=== PATIENT | male | born 1995 | race Caucasian/White ===

== ENCOUNTER 2023-07-26 09:11 | Outpatient (REF) | payer MEDICARE, MEDICAID, SELFPAY | END 2023-07-26 09:12 | disposition home or self-care (01) | LOC: HO.HHCL 09:11 | PROVIDERS: Visit Provider Internal Medicine Geriatric Medicine | DX: Z00.00 Encounter for general adult medical examination without abnormal findings (principal); Z13.1 Encounter for screening for diabetes mellitus; Z13.220 Encounter for screening for lipoid disorders | CPT/HCPCS: 36415; 80048; 80061 ==

== ENCOUNTER 2023-11-17 08:53 | Outpatient (REF) | payer MEDICARE, MEDICAID, SELFPAY ==
[2023-11-20 09:29] LABS: TS Negative Control Passed; TS Panel A 0; TS Panel B 0; TS Positive Control Passed; TSpotTB Negative (Negative)
== END 2023-11-17 08:54 | disposition home or self-care (01) ==
LOC: HO.HHCL 08:53
PROVIDERS: Visit Provider Internal Medicine Geriatric Medicine
DX: Z11.1 Encounter for screening for respiratory tuberculosis (principal)
CPT/HCPCS: 36415; 86481

== ENCOUNTER 2024-07-09 14:53 | Outpatient (REF) | payer MEDICARE, MEDICAID, SELFPAY ==
[2024-07-09 17:30] LABS: Anion Gap 11 (12-20); Blood Urea Nitrogen 16 mg/dL (9-16); Calcium 9.6 mg/dL (8.4-10.2); Carbon Dioxide 25 mmol/L (22-29); Chloride 106 mmol/L (96-108); Cholesterol 196 mg/dL (<200); Estimated Glomerular Filt Rate > 60; Glucose Random 87 mg/dL (60-115); HDL Cholesterol 31 mg/dL (>40); LDL Cholesterol Calculated 124 mg/dL (<100); Potassium 4.2 mmol/L (3.3-5.1); Sodium 138 mmol/L (135-145); Triglycerides 206 mg/dL (<150)
[2024-07-10 08:11] LABS: HIV AB/AG Nonreactive (Nonreactive); HIV Num 1 0.05 S/CO (0.00-0.99); ~HepC Num1 0.16 S/CO (0.00-0.79); ~Hepatitis C Antibody Nonreactive (Nonreactive)
== END 2024-07-09 14:54 | disposition home or self-care (01) ==
LOC: HO.HHCL 14:53
PROVIDERS: Visit Provider Internal Medicine Geriatric Medicine
DX: Z11.59 Encounter for screening for other viral diseases (principal); F06.8 Other specified mental disorders due to known physiological condition; Z11.4 Encounter for screening for human immunodeficiency virus [HIV]; F31.9 Bipolar disorder, unspecified; Z28.21 Immunization not carried out because of patient refusal; E66.9 Obesity, unspecified
CPT/HCPCS: 36415; 80048; 80061; 86803; 87389

== ENCOUNTER → 2025-05-31 09:27 | Outpatient (REF) | payer MEDICARE, MEDICAID, SELFPAY ==
--- OUTSIDE RECORDS SUMMARY | 2024-04-09 06:30 | XMS_ITS ---
Author Organization [facility] Address [address], [place] [id number] Care Team Providers Care Inspector Assembly Name Role Phone NO, PCP Primary Care Provider Gwendolyn Keane Unavailable [phone] Radha Gann Unavailable [phone] Encounters Encounter Location Date Provider Diagnosis [facility] [address] [place] [phone] 04/09/2024 Radha Gann Plan Of Treatment No Information Progress Notes * Js LYNCHsDOB:1995 (30 yo M)Acc No.[id number]:04/09/2024 Case Management Patient: Luis Manuel PIERRE Provider: Yanira Gann :1995 A ge:28 Y S ex:Male Date:04/09/2024 Address:[address] [place] [address] Kaden YUAN [id number] Pcp:PCP NO Subjective: * Chief Complaints: * * Medical History: Objective: Assessment: Plan: * Treatment: * Images: Billing Information: * Visit Code: * Procedure Codes: Care Plan Details* * Electronic signature of Julio Gann on 05/31/2025 at 09:42 AM EDT Sign off status: Pending * Provider: Yanira Gann Date: 04/09/2024 Generated for Estiven luque/Clement/eTgerson on: 05/31/2025 09:42 AM EDT
--- NOTE | 2025-05-31 09:36 | ECG_ITS ---
Test Reason : schizophrenia Blood Pressure : */* mmHG Vent. Rate : 57 BPM Atrial Rate : 57 BPM P-R Int : 134 ms QRS Dur : 86 ms QT Int : 428 ms P-R-T Axes : -7 17 21 degrees QTcB Int : 416 ms Sinus bradycardia with sinus arrhythmia Otherwise normal ECG No previous ECGs available Referred By: Rishi Fournier Electronically Signed By: Vito Burnette
--- OUTSIDE RECORDS SUMMARY | 2025-05-31 09:42 | XMS_ITS | Clinical Summary ---
Author Organization [employer] Address [address] [place] [address] Care Team Providers Care Global Sales Executive Name Role Phone Name, Abdiaziz TANNER Primary Care Provider [phone] Allergies No known active allergies Medications * This document contains information received from the source organization and may not represent a complete record from that organization. benztropine (Cogentin) 1 MG tablet 3 Active perphenazine 4 MG tablet 3 Active sertraline (Zoloft) 100 MG tablet 3 Active melatonin 3 MG tablet Take 1 tablet (3 mg) by mouth at bedtime. 90 tablet 3 3 Active risperiDONE ER (Uzedy) 125 MG/0.35ML suspension prefilled syringeIndicati ons:Bipolar 1 disorder (CMS/HCC) Inject 125 mg under the skin every 28 (twenty-eight) days. 0.35 mL 3 5 Active divalproex (Depakote) 500 MG EC tabletIndicatio ns:Bipolar 1 disorder (CMS/HCC) Take 4 tabs (2,000 mg) by mouth daily 120 tablet 3 5 Active chlorproMAZINE (Thorazine) 100 MG tablet Take 1 tablet (100 mg) by mouth Once per day. As needed Agitation 30 tablet 3 5 Active hydrOXYzine pamoate (Vistaril) 50 MG capsule Take 1 capsule (50 mg) by mouth if needed in the morning and at bedtime for anxiety. 30 capsule 3 5 Active risperiDONE (RisperDAL) 3 MG tablet Take 1 tablet (3 mg) by mouth 2 times daily. 60 tablet 3 5 Active traZODone (Desyrel) 100 MG tabletIndicatio ns:Bipolar 1 disorder (CMS/HCC) Take 0.5 tablets (50 mg) by mouth at bedtime. 30 tablet 3 5 Active cyanocobalamin (Vitamin B-12) 1000 MCG tablet Take 1 tablet (1,000 mcg) by mouth Once per day. 30 tablet 3 5 Active triamcinolone (Kenalog) 0.1 % creamIndication s:Rash Apply topically if needed in the morning and at bedtime (pain and swelling). 30 g 5 Active haloperidol (Haldol) 5 MG tabletIndicatio ns:Bipolar 1 disorder (CMS/HCC) TAKE 2 TABLETS BY MOUTH EVERY DAY 60 tablet 3 5 Active Active Problems Problem Noted Date Diagnosed Date Alcohol use disorder 04/29/2025 Right arm cellulitis 04/02/2025 Assessment & Plan (04/02/2025 9:46 AM EDT): I will prescribe doxycycline 100 mg twice a day Advised patient to monitor the area if erythema extends or if tenderness gets worse or if there is suppuration to come back to be seen Rash 04/02/2025 Class 2 obesity 12/31/2024 Schizoaffective disorder, bipolar type Healthcare maintenance 12/07/2024 Open fracture of tooth 12/07/2024 Cannabis use disorder 12/04/2024 PELON (generalized anxiety disorder) 01/03/2024 Dental calculus 09/13/2023 Dental caries 09/13/2023 Dental abscess 09/13/2023 Gingival bleeding 09/13/2023 Missing teeth, acquired 09/13/2023 Financial insecurity 06/11/2023 Assessment & Plan (06/11/2023 2:10 PM EDT): Has lead case manager appointment this week to help enroll in services Resolved Problems Problem Noted Date Diagnosed Date Resolved Date Bipolar 1 disorder 06/11/2023 Assessment & Plan (12/07/2024 10:23 AM EST): Pt appears well today, no SI/HI at this time Pt plans to f/u with OP psychiatry and therapist Pt plans to continue on current meds- fills sent today EKG was normal, no QT prolongation Pt plans to f/u for nurse visit on 12/18/24 for next risperidone injection Pt plans to f/u with PCP on 12/31/24 Assessment & Plan (06/11/2023 2:10 PM EDT): Per pt report, no psychiatric notes available Discussed with dad that speaking with new psychiatrist about medication concerns is the best idea Anger 06/11/2023 03/25/2025 Assessment & Plan (06/11/2023 2:11 PM EDT): Per patient, this is why he has been placed on sedating medications Encounters * This document contains information received from the source organization and may not represent a complete record from that organization. Date Type Department Care Team Description 05/20/2025 Patient Outreach [facility] [address], [place] [phone] Lilly Lopez [facility] 05/17/[address] [address] Michael Callahan [place] june recalls 05/13/2025 Patient Outreach [facility] [address] [place] [address] Lilly [facility] 04/21/2025 Refill [facility] [address] [place] [address] Vidhi Alves CNP Bipolar 1 disorder ([facility]) 04/02/2025 9:40 AM EDT Office Visit [facility] [address] [place] [address] Bailey Mays MD Right arm cellulitis (Primary Dx); Rash 03/22/2025 Patient Outreach [facility] [address] [place] [address] Luis Manuel Marti [facility] 03/08/2025 Telephone [facility] [address] [place] [address] Name, MD Abdiaziz Prior Auth Prescription 03/01/2025 Refill [facility] [address] [place] [address] Name, MD Abdiaziz from Last 3 Months Immunizations Immunization Administration Dates Next Due Influenza injectable quadrivalent preservative f ree 07/12/2023 Influenza, IIV3, injectable 07/12/2023 Tdap 07/12/2023 Social History Tobacco Use Types Packs/Day Years Used Date Smoking Tobacco: Every Day Cigarettes Smokeless Tobacco: Never Tobacco Cessation:Ready to Q uit: Not Asked; Counseling Given: Not Answered Alcohol Use Standard Drinks/Week Comments Yes 0 (1 standard drink = 0.6 oz pur e alcohol) Alcohol Answer Date Recorded How often do you have a drink containing alcohol ? 1 03/22/2025 How many drinks containing a lcohol do you have on a typical day when you are drinking? 2 03/22/2025 How often do you have six or more drinks on one occasion? 0 03/22/2025 Depression Answer Date Recorded Patient Health Questionnaire-9 Score 8 02/05/2025 Patient Health Questionnaire-9 Score 8 02/05/2025 Last PHQ-9: Questionnaire Data Not on file 0 02/05/2025 Housing Stability Answer Date Recorded What is your housing situation today? I have broderick velazco 08/09/[address] you li ve. Do you have problems with any of the following? None of the above 08/09/2023 Food Insecurity Answer Date Recorded Within the past 12 months, y ou worried that your food would run out before you got money to buy more: Never True 08/09/2023 Within the past 12 months,th e food you bought just didn't last and you didn't have enough money to get more: Never True Transportation Answer Date Recorded In the past 12 months, has l ack of transportation kept you from medical appts, meetings, work or from getting things needed for daily living? No 08/09/2023 Utilities Answer Date Recorded In the past 12 months, has t he electric, gas, oil or water company threatened to shut off services in your home? No 08/09/2023 Depression Answer Date Recorded Patient Health Questionnaire-2 Score 0 02/05/2025 Internet Access Answer Date Recorded Internet Access Q1 Yes 07/02/2024 Internet Access Q2 Not on file 07/02/2024 Sex and Gender Information Value Date Recorded Sex Assigned at Male 08/16/2022 10:31 AM EDT Legal Sex Male 10:31 AM EDT Gender Identity Choose not to disclose 10:31 AM EDT Sexual Orientation Choose not to disclose 2021 10:31 AM EDT Last Filed Vital Signs Vital Sign Reading Time Taken Comments Blood Pressure 128/86 04/02/2025 9:24 AM EDT Pulse 79 04/02/2025 9:24 AM EDT Temperature 36.6 C (97.8 F) 04/02/2025 9:24 AM EDT Respiratory Rate 17 04/02/2025 9:24 AM EDT Oxygen Saturation 98% 04/02/2025 9:24 AM EDT Inhaled Oxygen Concentration - - Weight 105 kg (231 lb 3.2 oz) 04/02/2025 9:24 AM EDT Height 177.8 cm (5' 10 ) 12/31/2024 9:43 AM EDT Body Mass Index 33.17 12/31/2024 9:43 AM EDT Plan of Treatment Upcoming Encounters Date Type Department Care Team (Late st Contact Info) Description 07/30/2025 9:30 AM EDT Office Visit [facility] [address] [place] [phone] Name, MD Abdiaziz [address] [place] [address] Health Maintenance Due Date Last Done Comments Disability Screening 1995 Family Planning (PISQ) 2012 HPV Vaccines (1 - 3-dose series) 2012 Hepatitis B Vaccines (1 of 3 - 19+ 3-dose series) 2016 Pneumococcal Vaccine: Pediatrics (0 to 5 Years) and At-Risk Patients (6 to 49) Years (1 of 2 - PCV) 2016 Dental Oral Exam 03/14/2024 09/13/2023 Dental Prophylaxis 03/14/2024 09/13/2023 COVID-19 Vaccine (1 - 2023-2 5 season) 2024 Dental X-Ray: Bitewings 09/14/2024 09/13/2023 Influenza Vaccine (#1) 2025 3, 07/12/2023 SDOH Screening 07/02/2025 07/02/2024 Tobacco Screening 12/31/2025 12/31/2024 Depression Screening 02/05/2026 02/05/2025, 02/05/2025 Alcohol/Substance Use Screening 03/22/2026 03/22/2025 Dental X-Ray: Full Mouth 09/14/2026 09/13/2023 Lipid Panel 07/09/2029 07/09/2024, 07/26/2023 DTaP/Tdap/Td Vaccines (2 - T d or Tdap) 07/12/2033 07/12/2023 Zoster Vaccines (1 of 2) 2047 RSV Patients and Patients Aged 60 years or older (1 - 1-dose 75+ series) 2072 HIV Screening Completed 07/09/2024 Hepatitis C Screening Completed 07/09/2024 HIB Vaccines Aged Out No longer eligi ble based on patient's age to complete this topic Hepatitis A Vaccines Aged Out No long er eligible based on patient's age to complete this topic IPV Vaccines Aged Out No longer eligi ble based on patient's age to complete this topic Meningococcal B Vaccine Aged Out No l onger eligible based on patient's age to complete this topic Meningococcal Vaccine Aged Out No nancy anette eligible based on patient's age to complete this topic RSV under 20 months Aged Out No longe r eligible based on patient's age to complete this topic Rotavirus Vaccines Aged Out No longer eligible based on patient's age to complete this topic Procedures Procedure Name Priority Date/Time Associated Diagnosis Comments HEPATITIS C AB W/REFL TO HCV RNA, QN, PCR Routine 07/09/2024 3:00 PM EDT Vaccination refused by patient Bipolar 1 disorder (CMS/HCC) Obesity (BMI 35.0-39.9 without comorbidity) Need for hepatitis C screening test HIV 1/2 ANTIGEN/ANTIBODY, FOURTH GENERATION W/RFL Routine 07/09/2024 3:00 PM EDT Vaccination refused by patient Bipolar 1 disorder (CMS/HCC) Obesity (BMI 35.0-39.9 without comorbidity) Need for hepatitis C screening test Other specified mental disorders due to known physiological condition LIPID PANEL, STANDARD Routine 07/09/2024 1:00 PM EDT Vaccination refused by patient Bipolar 1 disorder (CMS/HCC) Obesity (BMI 35.0-39.9 without comorbidity) Need for hepatitis C screening test PROPHYLAXIS - ADULT Routine 09/13/2023 9 :00 AM EST Dental calculus Gingival bleeding INTRAORAL - COMPLETE SERIES OF RADIOGRAPHIC IMAGES Routine 09/13/2023 9:00 AM EST Dental calculus Dental caries Dental abscess Gingival bleeding COMPREHENSIVE ORAL EVALUATION - NEW OR ESTABLISHED PATIENT Routine 09/13/2023 9:00 AM EST from Last 3 Months or Most Recently Relevant to Health Maintenance Results * Hepatitis C Antibody with Reflex to HCV, RNA, Quantitative, Real-Time PCR (07/09/2024 3:00 PM EDT) Pathologist [facility] Hepatitis C Antibody Nonreactive Nonreactive [facility] Comment:Antibodies to HCV no t detected; does not exclude early acuteHCV infection. Blood Venous blood specimen / Unknown 07/09/2024 3:00 PM EDT 07/09/2024 4:53 PM EDT us Abdiaziz Name LAB BLOOD ORDERABLES Final Resul t [facility] [address] [place] [phone] * HIV-1/2 Antigen and Antibodies, Fourth Generation, with Reflexes (07/09/2024 3:00 PM EDT) Pathologist [facility] HIV AB/AG Nonreactive Nonreactive [facility] Comment:HIV-1 p24 Ag and/or HIV-1/HIV-2 Ab not detected.A test result that is nonreactive does not exclude thepossibility of exposure to or infection with HIV-1 and/orHIV-2. Nonreactive results in this assay for individualswith prior exposure to HIV-1 and/or HIV-2 may be due toantigen and antibody levels that are below the limit ofdetection of this assay.The ComEd HIV Ag/Ab Combo assay result andsupplemental assay results should be interpreted inconjunction with the patient's clinical presentation,history and other laboratory results. If the results areinconsistent with clinical evidence, additional testing issuggested to confirm the result. Blood Venous blood specimen / Unknown 07/09/2024 3:00 PM EDT 07/09/2024 4:53 PM EDT Abdiaziz Duncan MD LAB BLOOD ORDERABLES Final Resul t Performing Organization Address [facility] de Phone Number [facility] [address] [place] [phone] * (ABNORMAL) Lipid Panel, Standard (07/09/2024 1:00 PM EDT) Triglycerides 206(H) <150 mg/dL [facility] Comment:Desirable Triglyceri de: less than 150 mg/dLBorderline High Triglyceride 150-199 mg/dLHigh Triglyceride: 200-499 mg/dLVery High Triglyceride: greater than or equal to 5OO mg/dL Cholesterol 196 <200 mg/dL [facility] Comment:Desirable Cholestero l: less than 200 mg/dLBorderline High Cholesterol: 200-239 mg/dLHigh Cholesterol: greater than 239 mg/dL LDL Cholesterol Calculated 124(H) <100 mg/dL [facility] Comment:Desirable LDL: less than 100 mg/dLNear Optimal/Above Optimal LDL: 110- 129 mg/dLBorderline High LDL: 130-159 mg/dLHigh LDL: 160-189 mg/dLVery High LDL: greater than or equal to 190 mg/dL HDL Cholesterol 31(L) >40 mg/dL [facility] Comment:Desirable HDL: great er than 40 mg/dL Note: This HDL assay may give artificially low results in patients with liver disease. Blood Venous blood specimen / Unknown 07/09/2024 1:00 PM EDT 07/09/2024 4:53 PM EDT us Abdiaziz Duncan MD LAB BLOOD ORDERABLES Final Resul t Performing Organization Address [facility] Co de Phone Number [facility] [address] [place] [phone] from Last 3 Months or Most Recently Relevant to Health Maintenance Insurance [facility] STANDARD MEDICARE DENTAL-[facility] MEDICAID STAND ADULT * Guarantor: [employer] Account Type Relation to Patient Date of Phone Billing Address Personal/[place] [address] Care Teams Global Sales Executive Relationship Specialty Start Date End Date Name, MD Abdiaziz [address] [place] [phone] PCP - General Internal Medicine 08/19/[address] [facility] 11/26/24
== END ==
LOC: HO.CARD 09:27
PROVIDERS: PCP Internal Medicine Geriatric Medicine; Visit Provider Nurse Practitioner Psychiatric/Mental Health
DX: F20.9 Schizophrenia, unspecified (principal)
CPT/HCPCS: 93005

== ENCOUNTER → 2025-05-31 09:36 | Outpatient (BNV) | payer MEDICARE, MEDICAID, SELFPAY | PROVIDERS: PCP Internal Medicine Geriatric Medicine; Visit Provider Internal Medicine Cardiovascular Disease | DX: I49.9 Cardiac arrhythmia, unspecified (principal); R00.1 Bradycardia, unspecified | CPT/HCPCS: 93010 ==

== ENCOUNTER 2025-08-30 08:11 | Outpatient (REF) | payer MEDICARE, MEDICAID, SELFPAY ==
[2025-08-30 12:13] LABS: Alanine Aminotransferase 19 U/L (0-40); Albumin Level 4.8 g/dL (3.5-5.0); Alkaline Phosphatase 59 U/L (39-117); Anion Gap 11 (12-20); Aspartate Amino Transferase 23 U/L (5-37); Blood Urea Nitrogen 16 mg/dL (9-16); Calcium 9.6 mg/dL (8.4-10.2); Carbon Dioxide 29 mmol/L (22-29); Chloride 105 mmol/L (96-108); Cholesterol 161 mg/dL (<200); Estimated Glomerular Filt Rate > 60; HDL Cholesterol 46 mg/dL (>40); Potassium 4.4 mmol/L (3.3-5.1); Sodium 141 mmol/L (135-145); Total Protein 7.4 g/dL (6.5-8.0); Triglycerides 76 mg/dL (<150)
== END 2025-08-30 08:12 | disposition home or self-care (01) ==
LOC: HO.HHCL 08:11
PROVIDERS: PCP Internal Medicine Geriatric Medicine; Visit Provider Internal Medicine Geriatric Medicine
DX: Z13.1 Encounter for screening for diabetes mellitus (principal); Z13.220 Encounter for screening for lipoid disorders; Z13.6 Encounter for screening for cardiovascular disorders
CPT/HCPCS: 36415; 80053; 80061